=== PATIENT | female | born 1935 | race Caucasian/White ===

== ENCOUNTER 2020-07-08 16:13 | Outpatient (CLI) | payer MEDICARE, OTHER ==
--- NOTE | 2020-07-08 19:33 | XRAY Report ---
PROCEDURE: Hip w/Pelvis 2-3V LT INDICATIONS: LOW BACK PAIN TECHNIQUE: AP pelvis with lateral view(s) of the left hip(s). COMPARISON: None. FINDINGS: Bones: No fractures or dislocations but there is severe degenerative hip joint osteoarthritis on the left with subchondral cysts prominent both within the femoral head and the overlying acetabulum.. P elvic ring appears intact. No suspicious bony lesions. Soft tissues: The visualized bowel gas pattern is normal. No suspicious soft tissue calcifications. IMPRESSION: Severe degenerative left hip joint osteoarthritis with prominent subchondral cysts sandra eting the underlying medullary space of both the left acetabulum and left femoral head. Reviewed by: Jarred Andrews MD on 07/08/2020 7:31 PM PST Approved by: Jarred Andrews MD on 07/08/2020 7:31 PM PST Station ID: [id number]
--- NOTE | 2020-07-09 11:06 | XRAY Report ---
PROCEDURE: Lumbar Spine 2 View INDICATIONS: LOW BACK PAIN TECHNIQUE: 3 views of the lumbar spine were acquired. COMPARISON: None. FINDINGS: Bones: 5 [id number] vertebrae are present. There is rightward curvature of the thoracolumbar sp ine. The lumbar spine has disc space narrowing, endplate sclerosis, and osteophytes at all lumbar lev els from L1-2 through L5-S1. There is facet arthrosis at L4-5 with grade 1 anterolisthesis. There is facet arthrosis at L5-S1. No vertebral body height loss. Soft tissues: Overlying bowel gas pattern is normal. No suspicious soft tissue calcifications. IMPRESSION: 1. 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 2. Leftward curvature of the lumbar spine. Reviewed by: Valeriy Bello on 07/09/2020 11:04 AM [facility] Approved by: Valeriy Bello on 07/09/2020 11:04 AM [facility] Station ID: [id number]
== END 2020-07-08 16:14 | disposition home or self-care (01) ==
LOC: DI.N 16:13
PROVIDERS: ATTEND Physician Assistant
DX: M51.37 Other intervertebral disc degeneration, lumbosacral region (principal); M16.12 Unilateral primary osteoarthritis, left hip; R26.9 Unspecified abnormalities of gait and mobility

== ENCOUNTER 2020-09-13 21:08 | Outpatient (CLI) | payer MEDICARE, OTHER | END 2020-09-13 21:09 | disposition EMS.NT | LOC: EMS 21:08 | DX: R60.0 Localized edema (principal) ==

== ENCOUNTER 2021-01-11 10:59 | Outpatient (CLI) | payer MEDICARE, OTHER ==
[2021-01-11 21:46] LABS: BACTERIAL VAGINOSIS DNA NEGATIVE (NEGATIVE); CANDIDA GLABRATA DNA NEGATIVE (NEGATIVE); CANDIDA GROUP DNA NEGATIVE (NEGATIVE); CANDIDA KRUSEI DNA NEGATIVE (NEGATIVE); TRICHOMONAS VAGINALIS DNA NEGATIVE (NEGATIVE)
== END 2021-01-11 11:01 ==
LOC: LAB.N 10:59
PROVIDERS: ATTEND Nurse Practitioner
DX: N89.8 Other specified noninflammatory disorders of vagina (principal)
CPT/HCPCS: 87661; 87801

== ENCOUNTER 2021-02-10 13:48 | Outpatient (CLI) | payer MEDICARE, OTHER ==
--- NOTE | 2021-02-21 10:36 | Mammography Report ---
BILATERAL DIGITAL SCREENING MAMMOGRAM 3D/2D: 02/10/2021 CLINICAL: Routine screening. No prior exams were available for comparison. The tissue of both breasts is predominantly fatty. There are benign vascular calcifications in both breasts. No significant masses, calcifications, or other findings are seen in either breast. IMPRESSION: BENIGN There is no mammographic evidence of malignancy. A 1 year screening mammogram is recommended. This exam was interpreted at Station ID: [id number]. NOTE: For mammograms, a report in lay terms will be sent to the patient. Approximately 15% of breast malignancies will not be visualized mammographically. In the management of a palpable breast mass, a negative mammogram must not discourage biopsy of a clinically suspicious lesion. Electronically Signed By: Bakari baker/adolfo:02/21/2021 09:03:23 ACR BI-RADS Category 2: Benign Finding(s) 3342F PARENCHYMAL PATTERN: (F) - The breast(s) demonstrate(s) diffuse fatty replacement. BI-RADS CATEGORY: (2) - 2 RECOMMENDATION: (ANNUAL) - Recommend routine annual screening mammography. [id number] 1 year screening LATERALITY: (B)
== END 2021-02-10 13:49 | disposition home or self-care (01) ==
LOC: DI.N 13:48
DX: Z12.31 Encounter for screening mammogram for malignant neoplasm of breast (principal)

== ENCOUNTER 2021-02-25 09:51 | Outpatient (CLI) | payer MEDICARE, OTHER | END 2021-02-25 09:52 | disposition home or self-care (01) | LOC: DI 09:51 | PROVIDERS: ATTEND Physician Assistant | DX: R06.09 Other forms of dyspnea (principal); M79.89 Other specified soft tissue disorders | CPT/HCPCS: 93306 ==

== ENCOUNTER 2021-02-25 10:00 | Outpatient (CLI) | payer MEDICARE, OTHER ==
--- NOTE | 2021-02-25 11:35 | DEXA Report ---
PROCEDURE: Dexa Spine and/or Hip INDICATIONS: POST MENOPAUSAL TECHNIQUE: Dual energy x-ray absorptiometry (DXA) was performed on a Tvinci System. Regions measur ed are the AP Spine, femoral neck, and if needed forearm. COMPARISON: None. FINDINGS: Lumbar Spine: Bone Mineral Density 1.635 g/cm/cm,T score 3.8, normal Left forearm: Bone Mineral Density 0.664 g/cm/cm, T score -0.2, normal (T score greater or equal to -1.0: NORMAL) (T score from -1.1 to -2.4: OSTEOPENIA) (T score less than or equal to -2.5 to: OSTEOPOROSIS) Impression: Bone mineral density as detailed above. Patients with diagnosis of osteoporosis or osteopenia should have regular bone mineral density assess ment. For those eligible for Medicare, routine testing is allowed once every 2 years. Testing frequ ency can be increased for patients who have rapidly progressing disease or for those who are receivin g medical therapy to restore bone mass. Reviewed by: Peterson Vinson MD on 02/25/2021 11:34 AM PDT Approved by: Peterson Vinson MD on 02/25/2021 11:34 AM PDT Station ID: [id number]
== END 2021-02-25 10:01 | disposition home or self-care (01) ==
LOC: DI 10:00
PROVIDERS: ATTEND Internal Medicine
DX: Z13.820 Encounter for screening for osteoporosis (principal); N95.8 Other specified menopausal and perimenopausal disorders; Z78.0 Asymptomatic menopausal state; R06.09 Other forms of dyspnea; M79.89 Other specified soft tissue disorders
CPT/HCPCS: 93306

== ENCOUNTER 2021-06-29 08:13 | Outpatient (CLI) | payer MEDICARE, OTHER ==
--- NOTE | 2021-06-29 08:52 | XRAY Report ---
PROCEDURE: Chest 2 View X-Ray INDICATIONS: SHORTNESS OF BREATH TECHNIQUE: 2 view(s) of the chest. COMPARISON: None. FINDINGS: Surgical changes and devices: None. Lungs and pleura: No pleural effusions or pneumothorax. Lungs are clear. Asymmetric elevation righ t hemidiaphragm. Mediastinum: Mediastinal contours are normal. Heart size is normal. Bones and chest wall: No suspicious bony abnormalities. Soft tissues appear unremarkable. IMPRESSION: No acute cardiopulmonary process demonstrated radiographically. Reviewed by: Bruno Borges MD on 06/29/2021 8:51 AM PST Approved by: Bruno Borges MD on 06/29/2021 8:51 AM [facility] Station ID: [id number]
== END 2021-06-29 08:14 | disposition home or self-care (01) ==
LOC: DI 08:13
PROVIDERS: ATTEND Physician Assistant
DX: R06.02 Shortness of breath (principal); R09.89 Other specified symptoms and signs involving the circulatory and respiratory systems

== ENCOUNTER 2021-07-13 08:52 | Outpatient (CLI) | payer MEDICARE, OTHER | END 2021-07-13 08:53 | disposition home or self-care (01) | LOC: RT 08:52 | PROVIDERS: ATTEND Physician Assistant | DX: R06.02 Shortness of breath (principal); R09.89 Other specified symptoms and signs involving the circulatory and respiratory systems | CPT/HCPCS: 94010 ==